=== PATIENT | male | born 1990 | race Hispanic/Latino ===

== ENCOUNTER 2016-03-09 15:06 | Emergency (ER) | payer OTHER ==
[~2016-03-09 15:06] MED LIST: Sodium Chloride Irrig Solution 250 ML BOT ONE
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
--- NOTE | 2016-03-09 16:11 | RAD ---
RIGHT SHOULDER 3 VIEWS: Date: 03/09/16 HISTORY: Right shoulder injury. FINDINGS: Glenohumeral alignment is maintained. No acute fracture or dislocation apparent. IMPRESSION: No acute osseous abnormalities demonstrated. POS: USHA
[2016-03-09] MEDS ORDERED: traMADol HCl 50 MG TAB ONE (16:33)
[2016-03-09] MEDS ORDERED: Adacel (T-DAP) 0.5 ML VIAL ONE (16:33)
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
== END 2016-03-09 16:40 | disposition home or self-care (01) ==
LOC: MADERS 15:06
DX: S01.01XA Laceration without foreign body of scalp, initial encounter (principal); J45.909 Unspecified asthma, uncomplicated; F41.9 Anxiety disorder, unspecified; F17.210 Nicotine dependence, cigarettes, uncomplicated; W10.9XXA Fall (on) (from) unspecified stairs and steps, initial encounter
CPT/HCPCS: 12001; 70450; 90471; 90715

== ENCOUNTER 2016-03-16 14:48 | Emergency (ER) | payer OTHER ==
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
== END 2016-03-16 15:35 | disposition home or self-care (01) ==
LOC: MADERS 14:48
DX: S01.01XD Laceration without foreign body of scalp, subsequent encounter (principal); J45.909 Unspecified asthma, uncomplicated; F41.9 Anxiety disorder, unspecified; F17.210 Nicotine dependence, cigarettes, uncomplicated; W10.9XXD Fall (on) (from) unspecified stairs and steps, subsequent encounter
CPT/HCPCS: 99281

== ENCOUNTER 2017-01-02 15:16 | Emergency (ER) | payer OTHER ==
[~2017-01-02 15:16] MED LIST changes: +Sodium Chloride 0.9% 1,000 ML BAG ONE; -Sodium Chloride Irrig Solution 250 ML BOT ONE
[2017-01-02] MEDS ORDERED: Ketorolac Tromethamine 30 MG/ML VIAL ONE (15:49)
[2017-01-02] MEDS ORDERED: Promethazine HCl 25 MG/ML VIAL ONE (15:49)
[2017-01-02 16:05] LABS: Hemoglobin 16.8 g/dL (14.0-18.0); Large Platelets SLIGHT; Lymphocytes 37 % (21-51); MDiff Complete? YES; Mean Corpuscular HGB CONC 33.5 g/dL (32.0-36.0); Mean Corpuscular Hemoglobin 32.2 pg (27.0-31.0); Mean Corpuscular Volume 95.9 fl (80.0-94.0); Mean Platelet Volume 10.7 fL (7.4-10.4); Monocytes 4 % (0-10); Neutrophil 37 % (42-75); PLT Morphology Comment Appears Adequate; Platelet Count 203 thou/uL (130-400); RBC Distribution Width 11.3 % (11.5-14.5); RBC Morphology Normal; Reactive Lymphocytes 22 % (0-10); Red Blood Cell (RBC) Count 5.23 mill/uL (4.70-6.10); White Blood Cell (WBC) Count 8.3 thou/uL (4.8-10.8)
[2017-01-02 16:06] LABS: ALT (SGPT) 12 U/L (8-55); AST (SGOT) 11 U/L (5-34); Albumin 4.7 g/dL (3.5-5.0); Alkaline Phosphatase 83 U/L (40-150); Anion Gap 15 mmol/L (10-20); BUN (Urea Nitrogen) 8 mg/dL (8.9-20.6); Bilirubin, Total 0.5 mg/dL (0.2-1.2); CK (CPK) 141 U/L (30-200); CKMB 0.6 ng/mL (0-6.6); Calc. Creatinine Clearance 0 mL/min (70-130); Carbon Dioxide 24 mmol/L (22-29); Chloride 105 mmol/L (98-107); Estimated GFR-MDRD Greater than 90; Globulin 3.1 g/dL (2.4-3.5); Glucose 101 mg/dL (70-105); Lipase 9 U/L (8-78); Potassium 3.7 mmol/L (3.5-5.1); Protein, Total 7.8 g/dL (6.0-8.3); Sodium 140 mmol/L (136-145); Troponin I Less than 0.010 ng/mL (< 0.028)
--- NOTE | 2017-01-02 16:38 | RAD ---
ACUTE ABDOMINAL SERIES FRONTAL RADIOGRAPH CHEST AND UPRIGHT AND SUPINE FRONTAL IMAGING OF ABDOMEN AND PELVIS: 01/02/2017 HISTORY: Mid-abdominal pain, pain radiating to the back. FINDINGS: Frontal radiograph chest demonstrates no pneumothorax, pleural fluid, focal consolidation, or alveol ar edema. Heart and mediastinal contours are unremarkable. Upright imaging demonstrates no evidence for free intraperitoneal air. No air fluid levels are seen within the bowel. The bowel gas pattern appears non-obstructed. A curvilinear metallic coil overl ies the left upper quadrant. IMPRESSION: No radiographic evidence of acute cardiopulmonary disease. No free intraperitoneal air or evidence of small bowel obstruction. POS: [facility]
[2017-01-02 17:16] LABS: Bilirubin Negative (Negative); Blood, Urine Negative (Negative); Clarity Clear (Clear); Glucose, Urine (Dipstick) Negative (Negative); Leukocyte Negative (Negative); Nitrite Negative (Negative); Protein, Urine (Dipstick) Negative (Neg-Trace); Urobilinogen 0.2 mg/dL (0.2-1.0); pH, Urine 7.5 (5.0-9.0)
[2017-01-02 17:24] LABS: Amphetamine Detected (NotDetected); Barbiturates Screen Not Detected (NotDetected); Benzodiazepine Screen Detected (NotDetected); Cocaine Metabolite Screen Not Detected (NotDetected); Methadone Not Detected (NotDetected); Methamphetamine Not Detected (NotDetected); Opiate Screen Detected (NotDetected); Oxycodone Screen Not Detected (NotDetected); Phencyclidine (PCP) Not Detected (NotDetected); THC/Cannabinoid Screen Detected (NotDetected); Tricyclic Screen Not Detected (NotDetected)
[2017-01-02 17:25] LABS: Medtox Control Line Valid? VALID (VALID)
[2017-01-02] MEDS ORDERED: Pantoprazole 40 MG VIAL ONE (18:15)
== END 2017-01-02 18:27 | disposition home or self-care (01) ==
LOC: MADERS 15:16
DX: K26.9 Duodenal ulcer, unspecified as acute or chronic, without hemorrhage or perforation (principal); F12.10 Cannabis abuse, uncomplicated; J45.909 Unspecified asthma, uncomplicated; F32.9 Major depressive disorder, single episode, unspecified; F41.9 Anxiety disorder, unspecified; F17.210 Nicotine dependence, cigarettes, uncomplicated
CPT/HCPCS: 74022; 80053; 80306; 81003; 82150; 82550; 82553; 83690; 84484; 85025; 86140; 87040; 87086; 93005; 96361; 96374; 96375; C9113; J1885; J2550; J7050

== ENCOUNTER 2019-04-21 14:55 | Emergency (ER) | payer SELFPAY ==
[2019-04-21] MEDS ORDERED: Ziprasidone 20 MG VIAL ONE (15:29)
[2019-04-21] MEDS ORDERED: Lorazepam 2 MG/ML VIAL ONE ×2 (15:48→20:52)
[2019-04-21 15:55] LABS: #Basophils 0.1 thou/uL (0.0-0.2); #Lymphocytes 3.2 thou/uL (1.20-3.40); #Neutrophils 13.9 thou/uL (1.40-6.50); %Basophils 0.7 % (0.0-1.0); %Eosinophils 0.1 % (0.0-10.0); %Lymphocytes 17.7 % (21.0-51.0); %Monocytes 5.2 % (0.0-10.0); %Neutrophils 76.3 % (42.0-75.0); Mean Corpuscular HGB CONC 31.1 g/dL (32.0-36.0); Mean Corpuscular Hemoglobin 29.4 pg (27.0-31.0); Mean Corpuscular Volume 94.8 fL (78.0-98.0); Platelet Count 324 thou/uL (130-400); Red Blood Cell (RBC) Count 5.79 mill/uL (4.70-6.10); White Blood Cell (WBC) Count 18.2 thou/uL (4.8-10.8)
[2019-04-21 16:09] LABS: ALT (SGPT) 60 U/L (8-55); AST (SGOT) 28 U/L (5-34); Alcohol Less than 10 mg/dL (Less than 10); Alkaline Phosphatase 107 U/L (40-110); Anion Gap 26 mmol/L (10-20); BUN (Urea Nitrogen) 6 mg/dL (8.9-20.6); Bilirubin, Total 0.5 mg/dL (0.2-1.2); CK (CPK) 455 U/L (30-200); Calc. Creatinine Clearance 0 mL/min (70-130); Calcium 9.9 mg/dL (7.8-10.44); Carbon Dioxide 12 mmol/L (22-29); Chloride 107 mmol/L (98-107); Estimated GFR-MDRD 64; Globulin 3.4 g/dL (2.4-3.5); Glucose 164 mg/dL (70-105); Potassium 3.6 mmol/L (3.5-5.1); Protein, Total 8.4 g/dL (6.0-8.3); Sodium 141 mmol/L (136-145)
[2019-04-21 16:37] LABS: Amphetamine Not Detected (NotDetected); Barbiturates Screen Not Detected (NotDetected); Benzodiazepine Screen Not Detected (NotDetected); Cocaine Metabolite Screen Not Detected (NotDetected); Medtox Control Line Valid? VALID (VALID); Methadone Not Detected (NotDetected); Methamphetamine Not Detected (NotDetected); Opiate Screen Not Detected (NotDetected); Oxycodone Screen Not Detected (NotDetected); Phencyclidine (PCP) Not Detected (NotDetected); THC/Cannabinoid Screen Detected (NotDetected); Tricyclic Screen Not Detected (NotDetected)
== END 2019-04-21 21:02 | disposition short-term general hospital (02) ==
LOC: MADERS 14:55
DX: F23 Brief psychotic disorder (principal); J45.909 Unspecified asthma, uncomplicated; F32.9 Major depressive disorder, single episode, unspecified; F17.210 Nicotine dependence, cigarettes, uncomplicated; Z79.899 Other long term (current) drug therapy
CPT/HCPCS: 36415; 51701; 80053; 80306; 80307; 82550; 84443; 85025; 93005; 96361; 96372; 96374; 96376; J2060; J3486; J7050